=== PATIENT | male | born 1985 | race Caucasian/White ===

== ENCOUNTER 2020-03-23 10:00 | Outpatient (RCR) | payer BC | END 2020-05-02 | disposition home or self-care (01) | LOC: WSOT | DX: G56.01 Carpal tunnel syndrome, right upper limb (principal) ==

== ENCOUNTER 2020-12-06 05:14 | Day surgery (SDC) | payer BC ==
[~2020-12-06] VITALS: Ht 172.7 cm; Wt 76.5 kg
[2020-12-06 06:33] VITALS: BP 111/72; PULSE 64; TEMP 98.2
[2020-12-06] MEDS ORDERED: COLACE 100100 MG/CAP PO (09:35)
[2020-12-06] MEDS ORDERED: NORCO 325 MG-51 TAB PO (09:37)
[2020-12-06] MEDS ORDERED: MOTRIN 600600 MG/TAB PO (09:37)
[2020-12-06 09:47] VITALS: BP 112/75; PULSE 51; TEMP 97.7
[2020-12-06 10:00] VITALS: BP 112/72; PULSE 51
[2020-12-06 10:15] VITALS: BP 107/70; PULSE 60
[2020-12-06 11:30] VITALS: BP 118/71; PULSE 59
--- NOTE | 2020-12-06 12:54 | NUR ---
PT RETURNED TO BAY#6 FROM THE OR PER CART. PT IS ALERT AND ORIENTATED. EYES CLOSED, SLEEPY. LUNGS CTA, HRR AND AYALA, BS HYPOACTIVE. IV REMAINS PATENT TO RIGHT HAND. 3 INSERTIONS SITES ARE CLEAN, DRY AND INTACT. PT RATES PAIN AT A 3-4 ON A 0-10 SCALE. PT DENIES WANTING ANYTHING FOR PAIN AT THIS TIME. , VICENTE IS AT BEDSIDE, SIDERAILS UP, CALL LIGHT IN REACH.
--- NOTE | 2020-12-06 13:03 | NUR ---
PT REQUESTS BLUEBERRY MUFFIN, APPLESAUCE, COFFEE AND WATER. PT DENIES NAUSEA OR VOMITING AT THIS TIME. WILL CONT TO MONITOR.
--- NOTE | 2020-12-06 13:11 | NUR ---
PT TOLERATING FOOD AND FLUIDS WITHOUT DIFFICULTY. CONTINUES TO RATE PAIN AT A 3 ON A 0-10 SCALE. DISCONNECTED IVF. PT UP TO WALK TO THE BATHROOM. PT VOIDED A SMALL AMOUNT WITHOUT DIFFICULTY. WILL CONT TO MONITOR PROGRESS.
--- NOTE | 2020-12-06 13:14 | NUR ---
PT IS UP WALKING THE BACK HALLWAY. PT STATES, 'I FEEL GASSY, I FEEL ALOT OF GAS BUBBLES, THE WALKING SEEMS TO HELP.' PT DENIES PAIN OR NAUSEA AT THIS TIME. IV DC'D TO RIGHT HAND WITHOUT DIFFICULTY. ABDOMINAL SITES X3 REMAIN INTACT WITHOUT DRAINAGE, REDNESS OR SWELLING. PT GIVEN DISMISSAL INSTRUCTIONS, PT SIGNED DISMISSAL AND TAKEN TO PT ENTRANCE PER WC TO PT VEHICLE.
== END 2020-12-06 12:00 | disposition home or self-care (01) ==
LOC: SDCO 05:14
DX: K40.90 Unilateral inguinal hernia, without obstruction or gangrene, not specified as recurrent (principal); J45.909 Unspecified asthma, uncomplicated; Z98.890 Other specified postprocedural states; Z87.19 Personal history of other diseases of the digestive system; Z80.0 Family history of malignant neoplasm of digestive organs; Z83.3 Family history of diabetes mellitus; Z82.49 Family history of ischemic heart disease and other diseases of the circulatory system
CPT/HCPCS: C1781; J1100; J1885; J2250; J2405; J2704; J2710; J2795; J3010; J7120

== ENCOUNTER → 2021-04-06 | Outpatient (CLI) | payer BC ==
[~2021-04-06] MED LIST: COLACE 100100 MG/CAP PO; MOTRIN 600600 MG/TAB PO; NORCO 325 MG-51 TAB PO
== END ==
LOC: COL.PUL 07:01
DX: R05.9 Cough, unspecified (principal); R06.2 Wheezing